=== PATIENT | male | born 1980 | race American Indian/Alaskan Native ===

== ENCOUNTER 2018-07-19 12:45 | Emergency (ER) | payer SELFPAY ==
[2018-07-19] MEDS ORDERED: IBUPROFEN PO ONE (13:18)
[2018-07-19] MEDS ORDERED: CATAPRES PO ONE ×2 (13:18→13:25)
[2018-07-19] MEDS ORDERED: CATAPRES ONE (13:29)
--- NOTE | 2018-07-19 14:36 | Cat Scan Report ---
CT HEAD WITHOUT CONTRAST INDICATION: Headache. COMPARISON: None similar. FINDINGS: Noncontrast head CT demonstrates normal, symmetric ventricles and sulci without acute or recent infarct, hemorrhage, mass effect or midline shift. No abnormal extra-axial fluid collections. Posterior fossa structures and basilar cisterns appear within normal limits. Symmetric eye globes. Right mid ethmoid air cell opacification. Clear remainder imaged paranasal sinuses and mastoid air cells. Intact calvarium. Normal overlying scalp soft tissues. Few radiopaque dental material incidentally noted. CONCLUSION: No acute intracranial CT abnormality, as described. Thank you for the opportunity to participate in this patient's care.
--- NOTE | 2018-07-19 14:36 | Emergency Department Report ---
ED Headache HPI - General Chief Complaint: High BP Stated Complaint: HBP Time Seen by Provider: 07/19/18 13:12 - History of Present Illness Initial Comments: This is a 38-year-old male nontoxic, well nourished in appearance, no acute signs of distress presents to the ED with c/o of acute headache. Patient describes headache as diffuse with level of 8 out of 10. Patient denies thunderclap headache. Patient denies any radiation of pain. Patient denies any head trauma. Patient denies any visual changes. Patient denies worse headache. Patient denies any numbness, tingling, fever, chills, nausea, vomiting, chest pain, shortness of breath, stiff neck. Patient denies any radiation of pain. Patient denies any allergies. Patient stated PMH includes HTN and was taken off lisinopril due to cough but has never followed for different medication. Timing/Duration: episodic Quality: mild, achy Head Injury Location: other (diffuse) Recent Head Trauma: no recent headache/trauma Associated Symptoms: denies symptoms. denies: confusion, fatigue, facial pain, fever/chills, flushing, loss of consciousness, nausea/vomiting, nasal congestion, nasal drainage, numbness in legs/feet, rash, seizures, sinus infection, stiff neck, vision changes, weakness Allergies/Adverse Reactions: Allergies No Known Allergies Allergy (Verified 10/15/13 14:39) Home Medications: Ambulatory Orders Lisinopril/Hydrochlorothiazide [Zestoretic 10-12.5 mg] 1 tab PO QDAY #30 tablet 10/11/14 traMADol [Ultram 50 MG tab] 50 mg PO Q6HR PRN #20 tablet 10/11/14 Amoxicillin [Trimox CAP] 500 mg PO Q8H #30 capsule 04/23/18 Ibuprofen [Motrin] 800 mg PO Q8HR #30 tablet 04/23/18 Valsartan [Diovan] 160 mg PO QDAY #40 tablet 04/23/18 Ibuprofen [Motrin] 600 mg PO Q8H PRN #30 tablet 07/19/18 amLODIPine [Norvasc] 10 mg PO DAILY #30 tab 07/19/18 ED Review of Systems ROS: Stated complaint: HBP Other details as noted in HPI Constitutional: denies: chills, fever Eyes: denies: eye pain, eye discharge, vision change ENT: denies: ear pain, throat pain Respiratory: denies: cough, shortness of breath, wheezing Cardiovascular: denies: chest pain, palpitations Endocrine: no symptoms reported Gastrointestinal: denies: abdominal pain, nausea, diarrhea Genitourinary: denies: urgency, dysuria Musculoskeletal: denies: back pain, joint swelling, arthralgia Skin: denies: rash, lesions Neurological: headache. denies: weakness, paresthesias Psychiatric: denies: anxiety, depression Hematological/Lymphatic: denies: easy bleeding, easy bruising ED Past Medical Hx - Past Medical History Previous Medical History?: Yes Hx Hypertension: Yes (not on medication) Hx Psychiatric Treatment: Yes (anxiety) Additional medical history: Cholelithiasis, hx of anxiety - Surgical History Past Surgical History?: Yes Additional Surgical History: CORNEAL LACERATION Lt eye 1996 - Social History Smoking Status: Never Smoker Substance Use Type: Alcohol - Medications Home Medications: Home Medications Medication Instructions Recorded Confirmed Last Taken Type Lisinopril/Hydrochlorothiazide 1 tab PO QDAY #30 tablet 10/11/14 Unknown Rx [Zestoretic 10-12.5 mg] traMADol [Ultram 50 MG tab] 50 mg PO Q6HR PRN #20 tablet 10/11/14 Unknown Rx Amoxicillin [Trimox CAP] 500 mg PO Q8H #30 capsule 04/23/18 Unknown Rx Ibuprofen [Motrin] 800 mg PO Q8HR #30 tablet 04/23/18 Unknown Rx Valsartan [Diovan] 160 mg PO QDAY #40 tablet 04/23/18 Unknown Rx Ibuprofen [Motrin] 600 mg PO Q8H PRN #30 tablet 07/19/18 Unknown Rx amLODIPine [Norvasc] 10 mg PO DAILY #30 tab 07/19/18 Unknown Rx ED Physical Exam - General Limitations: No Limitations General appearance: alert, in no apparent distress - Head Head exam: Present: atraumatic, normocephalic - Eye Eye exam: Present: normal appearance, PERRL, EOMI - Neck Neck exam: Present: normal inspection, full ROM - Extremities Exam Extremities exam: Present: normal inspection, full ROM, normal capillary refill - Back Exam Back exam: Present: normal inspection, full ROM. Absent: tenderness, CVA tenderness (R), CVA tenderness (L), muscle spasm, paraspinal tenderness, vertebral tenderness, rash noted - Neurological Exam Neurological exam: Present: alert, oriented X3, normal gait - Expanded Neurological Exam Expanded Patient oriented to: Present: person, place, time Cranial nerves: EOM's Intact: Normal, Facial Sensation: Normal Cerebellar function: Finger to Nose: Normal Upper motor neuron: Pronator Drift: Normal, Sensory Extinction: Normal Sensory exam: Upper Extremity Light Touch: Normal, Upper Extremity Pin Prick: Normal, Upper Extremity Temperature: Normal, Lower Extremity Light Touch: Normal, Lower Extremity Pin Prick: Normal, Lower Extremity Temperature: Normal Motor strength exam: RUE: 5, LUE: 5, RLE: 5, LLE: 5 Best Eye Response ([place]): (4) open spontaneously Best Motor Response ([place]): (6) obeys commands Best Verbal Response ([place]): (5) oriented [place] Total: 15 - Psychiatric Psychiatric exam: Present: normal affect, normal mood - Skin Skin exam: Present: warm, dry, intact, normal color. Absent: rash ED Course Vital Signs 07/19/18 07/19/18 07/19/18 12:57 13:27 13:28 Temperature 97.8 F Pulse Rate 98 H 84 84 Respiratory 18 Rate Blood Pressure 175/106 154/101 Blood Pressure 154/101 [Right] O2 Sat by Pulse 98 Oximetry - Reevaluation(s) Reevaluation #1: 07/19/18 14:38 Patient is speaking in full sentences with no signs of distress noted. ED Medical Decision Making - Medical Decision Making This is a 38-year-old male that presents with headache and hypertension. Patient is stable and was examined by me. Patient is neurologically stable. There is no stiff neck or neck pain. Vital signs are stable. Patient is afebrile. CT scan of head/brain obtained and dictated by the radiologist. Patient received Motrin which the patient stated that headache has subsided and resolved. Blood pressure has decreased with Catapres. I will discharge patient on Norvasc. Was instructed to keep a daily diary of blood pressure into presented to primary care doctor. Patient was referred to Follow-up with a primary care/neurologist doctor in 3-5 days or if symptoms worsen and continue return to emergency room as soon as possible. At time of discharge, the patient does not seem toxic or ill in appearance. No acute signs of distress noted. Patient agrees to discharge treatment plan of care. No further questions noted by the patient. Critical care attestation.: If time is entered above; I have spent that time in minutes in the direct care of this critically ill patient, excluding procedure time. ED Disposition Clinical Impression: Headache Qualifiers: Headache type: tension-type Headache chronicity pattern: acute headache Intractability: not intractable Qualified Code(s): G44.209 - Tension-type headache, unspecified, not intractable Hypertension Qualifiers: Hypertension type: unspecified Qualified Code(s): I10 - Essential (primary) hypertension Disposition: TO HOME OR SELFCARE Is pt being admited?: No Does the pt Need Aspirin: No Condition: Stable Instructions: Hypertension (ED), Acute Headache (ED) Additional Instructions: Follow-up with a primary care doctor in 3-5 days or if symptoms worsen and continue return to emergency room as soon as possible. Keep a daily diary of your blood pressure and present it to your primary care doctor. Prescriptions: amLODIPine [Norvasc] 10 mg PO DAILY #30 tab Ibuprofen [Motrin] 600 mg PO Q8H PRN #30 tablet PRN Reason: Pain Referrals: EDGARDO POLANCO DO [Primary Care Provider] - 3-5 Days PRIMARY CAREMD [Referring] - 3-5 Days AGUSTIN NOBLES MD [Staff Physician] - 3-5 Days [facility] [Outside] - 3-5 Days [facility] [Outside] - 3-5 Days Forms: Work/School Release Form(ED)
[2018-07-19 14:49] VITALS: BP 146/91
== END 2018-07-19 15:09 | disposition home or self-care (01) ==
LOC: ED 12:45
DX: G44.209 Tension-type headache, unspecified, not intractable (principal); I10 Essential (primary) hypertension; F41.9 Anxiety disorder, unspecified
CPT/HCPCS: 70450

== ENCOUNTER 2019-02-26 15:21 | Emergency (ER) | payer OTHER ==
[2019-02-26] MEDS ORDERED: ASPIRIN PO ONE (15:27)
--- NOTE | 2019-02-26 15:29 | Event Note ---
ED Screening Note Date of service: 02/26/19 Time: 15:27 ED Screening Note: This is a 39 y.o. M. that presents to the ER with chest pain that started while eating lunch at work. PMH of HTN and anxiety. This initial assessment/diagnostic orders/clinical plan/treatment(s) is/are subject to change based on patients health status, clinical progression and re- assessment by fellow clinical providers in the ED. Further treatment and workup at subsequent clinical providers discretion. Patient/guardian urged not to elope from the ED as their condition may be serious if not clinically assessed and managed. Initial orders include: Labs, EKG, & CXR
--- NOTE | 2019-02-26 16:01 | Emergency Department Report ---
ED Chest Pain HPI - General Chief Complaint: Chest Pain Stated Complaint: CHEST PAIN Time Seen by Provider: 02/26/19 15:26 Source: patient Mode of arrival: Ambulatory Limitations: No Limitations - History of Present Illness Initial Comments: Patient is 39 years old male with history of hypertension and anxiety. Patient presented to the ER complaining of left-sided chest pain that started all of a sudden while he was working. Patient describes his pain as sharp, intermittent with no radiation. Patient denied any fever or chills. MD Complaint: chest pain Onset: during rest Pain Location: left chest Severity: moderate Quality: sharp Consistency: intermittent - Related Data Previous Rx's Medication Instructions Recorded Last Taken Type Lisinopril/Hydrochlorothiazide 1 tab PO QDAY #30 tablet 10/11/14 Unknown Rx [Zestoretic 10-12.5 mg] traMADol [Ultram 50 MG tab] 50 mg PO Q6HR PRN #20 tablet 10/11/14 Unknown Rx Amoxicillin [Trimox CAP] 500 mg PO Q8H #30 capsule 04/23/18 Unknown Rx Ibuprofen [Motrin] 800 mg PO Q8HR #30 tablet 04/23/18 Unknown Rx Valsartan [Diovan] 160 mg PO QDAY #40 tablet 04/23/18 Unknown Rx Ibuprofen [Motrin] 600 mg PO Q8H PRN #30 tablet 07/19/18 Unknown Rx amLODIPine [Norvasc] 10 mg PO DAILY #30 tab 07/19/18 Unknown Rx Allergies Allergy/AdvReac Type Severity Reaction Status Date / Time No Known Allergies Allergy Verified 10/15/13 14:39 Heart Score - HEART Score History: Slightly suspicious EKG: Normal Age: < 45 Risk factors: 1-2 risk factors Troponin: < normal limit HEART Score: 1 - Critical Actions Critical Actions: 0-3 pts:0.9-1.7%risk of adverse cardiac event.Candidate for discharge ED Review of Systems ROS: Stated complaint: CHEST PAIN Other details as noted in HPI Comment: All other systems reviewed and negative Constitutional: denies: chills, fever Respiratory: denies: cough, orthopnea, shortness of breath, SOB with exertion, SOB at rest, wheezing Cardiovascular: chest pain. denies: palpitations, dyspnea on exertion, orthopnea Gastrointestinal: denies: abdominal pain, nausea, vomiting, diarrhea, constipation, hematemesis, melena, hematochezia Musculoskeletal: denies: back pain Neurological: denies: headache, weakness ED Past Medical Hx - Past Medical History Previous Medical History?: Yes Hx Hypertension: Yes (not on medication) Hx Psychiatric Treatment: Yes (anxiety) Additional medical history: Cholelithiasis, hx of anxiety - Surgical History Past Surgical History?: Yes Additional Surgical History: CORNEAL LACERATION Lt eye 1996 - Social History Smoking Status: Never Smoker Substance Use Type: Alcohol - Medications Home Medications: Home Medications Medication Instructions Recorded Confirmed Last Taken Type Lisinopril/Hydrochlorothiazide 1 tab PO QDAY #30 tablet 10/11/14 Unknown Rx [Zestoretic 10-12.5 mg] traMADol [Ultram 50 MG tab] 50 mg PO Q6HR PRN #20 tablet 10/11/14 Unknown Rx Amoxicillin [Trimox CAP] 500 mg PO Q8H #30 capsule 04/23/18 Unknown Rx Ibuprofen [Motrin] 800 mg PO Q8HR #30 tablet 04/23/18 Unknown Rx Valsartan [Diovan] 160 mg PO QDAY #40 tablet 04/23/18 Unknown Rx Ibuprofen [Motrin] 600 mg PO Q8H PRN #30 tablet 07/19/18 Unknown Rx amLODIPine [Norvasc] 10 mg PO DAILY #30 tab 07/19/18 Unknown Rx ED Physical Exam - General Limitations: No Limitations General appearance: alert, in no apparent distress - Head Head exam: Present: atraumatic, normocephalic, normal inspection - Eye Eye exam: Present: normal appearance, PERRL - ENT ENT exam: Present: normal exam, normal orophraynx, mucous membranes moist - Neck Neck exam: Present: normal inspection, full ROM. Absent: tenderness, meningismus, lymphadenopathy, thyromegaly - Respiratory Respiratory exam: Present: normal lung sounds bilaterally - Cardiovascular Cardiovascular Exam: Present: regular rate, normal rhythm, normal heart sounds - GI/Abdominal GI/Abdominal exam: Present: soft, normal bowel sounds. Absent: distended, tenderness, guarding, rebound, rigid, organomegaly, mass, bruit, pulsatile mass, hernia - Extremities Exam Extremities exam: Present: normal inspection, full ROM, normal capillary refill. Absent: tenderness, pedal edema, calf tenderness - Back Exam Back exam: Present: normal inspection, full ROM. Absent: CVA tenderness (R), CVA tenderness (L), muscle spasm, paraspinal tenderness, vertebral tenderness - Neurological Exam Neurological exam: Present: alert, oriented X3, CN II-XII intact, normal gait - Psychiatric Psychiatric exam: Present: normal mood - Skin Skin exam: Present: warm, intact, normal color ED Course Vital Signs 02/26/19 02/26/19 02/26/19 15:26 16:13 18:00 Temperature 98.3 F 98 F 98.5 F Pulse Rate 102 H 88 78 Respiratory 16 16 16 Rate Blood Pressure 171/84 Blood Pressure 160/90 140/93 [Right] O2 Sat by Pulse 98 98 98 Oximetry WILLIAM score - William Score Age > 65: (0) No Aspirin use within the Past 7 Days: (0) No 3 or more CAD Risk Factors: (0) No 2 or more Angina events in past 24 hrs: (0) No Known CAD with more than 50% Stenosis: (0) No Elevated Cardiac Markers: (0) No ST Deviation Greater than 0.5mm: (0) No WILLIAM Score: 0 ED Medical Decision Making - Lab Data Result diagrams: 02/26/19 15:46 02/26/19 15:41 - EKG Data -: EKG Interpreted by [place] EKG shows normal: sinus rhythm Rate: normal - EKG Data Interpretation: no acute changes - Radiology Data Radiology results: report reviewed - Medical Decision Making Patient is 39 years old male with history of hypertension and anxiety. Patient presented to the ER complaining of left-sided chest pain that started all of a sudden while he was working. Patient describes his pain as sharp, intermittent with no radiation. Patient denied any fever or chills. Patient also added that he ate a chili dogs today and he started having burning sensation after that. Patient stated that he has history of GERD also. Patient EKG is negative for acute finding. Chest x-ray is unremarkable. Patient's symptoms completely resolved. 2 sets of troponin is negative. Patient advised to follow-up with his primary care physician in the next 2-3 days and to return to the ER if symptoms are not improved. Critical care attestation.: If time is entered above; I have spent that time in minutes in the direct care of this critically ill patient, excluding procedure time. ED Disposition Clinical Impression: Chest pain Disposition: DC-01 TO HOME OR SELFCARE Is pt being admited?: No Condition: Stable Instructions: Chest Pain (ED) Referrals: PRIMARY CARE,MD [Primary Care Provider] - 3-5 Days
[2019-02-26 16:14] LABS: Basophils % (Auto) 0.4 % (0.0-1.8); Eosinophils % (Auto) 0.4 % (0.0-4.3); Hematocrit 43.7 % (35.5-45.6); Hemoglobin 14.7 gm/dl (11.8-15.2); Lymphocytes # (Auto) 1.9 K/mm3 (1.2-5.4); Lymphocytes % (Auto) 19.6 % (13.4-35.0); Mean Corpuscular HGB Conc 34 % (32-34); Mean Corpuscular Volume 98 fl (84-94); Monocytes # (Auto) 0.6 K/mm3 (0.0-0.8); Monocytes % (Auto) 6.5 % (0.0-7.3); Platelet Count 330 K/mm3 (140-440); Red Blood Count 4.47 M/mm3 (3.65-5.03); Red Cell Distribution Width 12.5 % (13.2-15.2)
--- NOTE | 2019-02-26 16:27 | XRay Report ---
CHEST 1 VIEW INDICATION: Chest Pain. COMPARISON: None. FINDINGS: Support devices: None. Heart: Within normal limits. Pulmonary vasculature: Normal. Lungs/Pleura: No acute air space or interstitial disease. Additional findings: None. IMPRESSION: 1. No acute findings. Signer Name: Aldo Collins MD Signed: 02/26/2019 4:22 PM Workstation Name: [id number]
[2019-02-26 16:35] LABS: BUN/Creatinine Ratio 11; Blood Urea Nitrogen 10 mg/dL (9-20); Calcium 9.3 mg/dL (8.4-10.2); Hemolysis Index 20
[2019-02-26 18:14] VITALS: BP 140/93
== END 2019-02-26 19:51 | disposition home or self-care (01) ==
LOC: ED 15:21
DX: R07.89 Other chest pain (principal); I10 Essential (primary) hypertension; F41.9 Anxiety disorder, unspecified; Z98.890 Other specified postprocedural states
CPT/HCPCS: 36415; 71045; 80048; 84484; 85025; 93005; 93010

== ENCOUNTER 2019-08-06 06:18 | Emergency (ER) | payer SELFPAY ==
[2019-08-06 06:24] VITALS: BP 147/103
--- NOTE | 2019-08-06 08:23 | Emergency Department Report ---
ED ENT HPI - General Chief complaint: Dental/Oral Stated complaint: TOOTHACHE Time Seen by Provider: 08/06/19 08:04 Source: patient Mode of arrival: Ambulatory Limitations: No Limitations - History of Present Illness MD complaint: tooth pain -: month(s) (Chronic ) Location: other (Teeth in right upper and left upper jaw) Severity: moderate Consistency: intermittent Improves with: none Worsens with: eating Context- Dental: poor dental care Associated Symptoms: gum swelling, toothache - Related Data Previous Rx's Medication Instructions Recorded Last Taken Type Lisinopril/Hydrochlorothiazide 1 tab PO QDAY #30 tablet 10/11/14 Unknown Rx [Zestoretic 10-12.5 mg] traMADoL [Ultram 50 MG tab] 50 mg PO Q6HR PRN #20 tablet 10/11/14 Unknown Rx Valsartan [Diovan] 160 mg PO QDAY #40 tablet 04/23/18 Unknown Rx Ibuprofen [Motrin] 600 mg PO Q8H PRN #30 tablet 07/19/18 Unknown Rx amLODIPine [Norvasc] 10 mg PO DAILY #30 tab 07/19/18 Unknown Rx Esomeprazole Magnesium [NexIUM] 40 mg PO QDAY #30 capsule. 02/26/19 Unknown Rx Amoxicillin [Trimox CAP] 500 mg PO Q8H #30 capsule 08/06/19 Unknown Rx Ibuprofen [Motrin 800 MG tab] 800 mg PO Q8HR #30 tablet 08/06/19 Unknown Rx Allergies Allergy/AdvReac Type Severity Reaction Status Date / Time No Known Allergies Allergy Verified 10/15/13 14:39 ED Dental HPI - General Chief complaint: Dental/Oral Stated complaint: TOOTHACHE Time Seen by Provider: 08/06/19 08:04 Source: patient Mode of arrival: Ambulatory Limitations: No Limitations - Related Data Previous Rx's Medication Instructions Recorded Last Taken Type Lisinopril/Hydrochlorothiazide 1 tab PO QDAY #30 tablet 10/11/14 Unknown Rx [Zestoretic 10-12.5 mg] traMADoL [Ultram 50 MG tab] 50 mg PO Q6HR PRN #20 tablet 10/11/14 Unknown Rx Valsartan [Diovan] 160 mg PO QDAY #40 tablet 04/23/18 Unknown Rx Ibuprofen [Motrin] 600 mg PO Q8H PRN #30 tablet 07/19/18 Unknown Rx amLODIPine [Norvasc] 10 mg PO DAILY #30 tab 07/19/18 Unknown Rx Esomeprazole Magnesium [NexIUM] 40 mg PO QDAY #30 capsule. 02/26/19 Unknown Rx Amoxicillin [Trimox CAP] 500 mg PO Q8H #30 capsule 08/06/19 Unknown Rx Ibuprofen [Motrin 800 MG tab] 800 mg PO Q8HR #30 tablet 08/06/19 Unknown Rx Allergies Allergy/AdvReac Type Severity Reaction Status Date / Time No Known Allergies Allergy Verified 10/15/13 14:39 ED Review of Systems ROS: Stated complaint: TOOTHACHE Other details as noted in HPI Constitutional: denies: chills, fever ENT: dental pain. denies: ear pain, throat pain, hearing loss, congestion Respiratory: denies: orthopnea, shortness of breath, SOB with exertion, SOB at rest Cardiovascular: denies: chest pain Gastrointestinal: denies: nausea, vomiting, diarrhea Skin: denies: rash Psychiatric: denies: anxiety, depression ED Past Medical Hx - Past Medical History Previous Medical History?: Yes Hx Hypertension: Yes (not on medication) Hx Psychiatric Treatment: Yes (anxiety) Additional medical history: Cholelithiasis, hx of anxiety - Surgical History Past Surgical History?: Yes Additional Surgical History: CORNEAL LACERATION Lt eye 1996 - Social History Smoking Status: Never Smoker Substance Use Type: None - Medications Home Medications: Home Medications Medication Instructions Recorded Confirmed Last Taken Type Lisinopril/Hydrochlorothiazide 1 tab PO QDAY #30 tablet 10/11/14 Unknown Rx [Zestoretic 10-12.5 mg] traMADoL [Ultram 50 MG tab] 50 mg PO Q6HR PRN #20 tablet 10/11/14 Unknown Rx Valsartan [Diovan] 160 mg PO QDAY #40 tablet 04/23/18 Unknown Rx Ibuprofen [Motrin] 600 mg PO Q8H PRN #30 tablet 07/19/18 Unknown Rx amLODIPine [Norvasc] 10 mg PO DAILY #30 tab 07/19/18 Unknown Rx Esomeprazole Magnesium [NexIUM] 40 mg PO QDAY #30 capsule. 02/26/19 Unknown Rx Amoxicillin [Trimox CAP] 500 mg PO Q8H #30 capsule 08/06/19 Unknown Rx Ibuprofen [Motrin 800 MG tab] 800 mg PO Q8HR #30 tablet 08/06/19 Unknown Rx ED Physical Exam - General Limitations: No Limitations - Head Head exam: Present: atraumatic, normocephalic - Eye Eye exam: Present: normal appearance - ENT ENT exam: Present: normal exam, mucous membranes dry, mucous membranes moist, other (extensive dental decay noted right upper posterior molars with gum swelling and ttp but no abscess. There is decay molar noted to most posterior aspect of left upper jaw. TTP but no obvious abscess) - Cardiovascular Cardiovascular Exam: Present: regular rate ED Course Vital Signs 08/06/19 06:22 Temperature 98.6 F Pulse Rate 77 Respiratory 18 Rate Blood Pressure 147/103 O2 Sat by Pulse 97 Oximetry Critical care attestation.: If time is entered above; I have spent that time in minutes in the direct care of this critically ill patient, excluding procedure time. ED Disposition Clinical Impression: Dental caries Disposition: DC-01 TO HOME OR SELFCARE Is pt being admited?: No Does the pt Need Aspirin: No Condition: Stable Instructions: Dental Caries (ED) Prescriptions: Ibuprofen [Motrin 800 MG tab] 800 mg PO Q8HR #30 tablet Amoxicillin [Trimox CAP] 500 mg PO Q8H #30 capsule Referrals: PRIMARY CARE, [Primary Care Provider] - 3-5 Days Time of Disposition: 08:23
== END 2019-08-06 08:36 | disposition home or self-care (01) ==
LOC: ED 06:18
DX: K02.9 Dental caries, unspecified (principal); I10 Essential (primary) hypertension; F41.9 Anxiety disorder, unspecified; Z79.1 Long term (current) use of non-steroidal anti-inflammatories (NSAID); Z79.899 Other long term (current) drug therapy; Z98.890 Other specified postprocedural states
CPT/HCPCS: 99282

== ENCOUNTER 2021-04-04 08:26 | Emergency (ER) | payer OTHER ==
[2021-04-04 08:56] VITALS: BP 164/87
--- NOTE | 2021-04-04 09:00 | Emergency Department Report ---
ED ENT HPI - General Chief complaint: Dental/Oral Stated complaint: MOTH INFECTION/BROKEN TEETH ISSUE Time Seen by Provider: 04/04/21 08:45 Source: patient Mode of arrival: Ambulatory Limitations: No Limitations - History of Present Illness Initial comments: This is a 41-year-old male nontoxic, well nourished in appearance, no acute signs of distress presents to the ED with c/o of upper toothache several days. Patient stated that he feels like it is draining due to a foul taste in mouth after swallowing saliva. Patient denies following up with a dentist. Patient describes toothache as aching level of 4 out of 10. Patient denies any facial swelling. Patient denies any numbness, tingling, fever, chills, headache, stiff neck, abdominal pain, chest pain, shortness of breath. Patient denies any drug allergies. MD complaint: tooth pain -: days(s) Location: tooth # 1 - Pain here Severity: mild Severity scale (0 -10): 4 Quality: aching Consistency: constant Improves with: none Worsens with: none Context- Dental: history of dental caries, poor dental care Associated Symptoms: gum swelling, toothache. denies: fever, cough, pain with swallowing, sore throat, tinnitus, hearing loss, discharge from ear, rhinorrhea - Related Data Previous Rx's Medication Instructions Recorded Last Taken Type Lisinopril/Hydrochlorothiazide 1 tab PO QDAY #30 tablet 10/11/14 Unknown Rx [Zestoretic 10-12.5 mg] traMADoL [Ultram 50 MG tab] 50 mg PO Q6HR PRN #20 tablet 10/11/14 Unknown Rx Valsartan [Diovan] 160 mg PO QDAY #40 tablet 04/23/18 Unknown Rx Ibuprofen [Motrin] 600 mg PO Q8H PRN #30 tablet 07/19/18 Unknown Rx amLODIPine [Norvasc] 10 mg PO DAILY #30 tab 07/19/18 Unknown Rx Esomeprazole Magnesium [NexIUM] 40 mg PO QDAY #30 02/26/19 Unknown Rx Amoxicillin [Trimox CAP] 500 mg PO Q8H #30 capsule 08/06/19 Unknown Rx Ibuprofen [Motrin 800 MG tab] 800 mg PO Q8HR #30 tablet 08/06/19 Unknown Rx Amoxicillin/K Clav Tab [Augmentin 1 tab PO Q12HR #20 tab 04/04/21 Unknown Rx 875 mg] Chlorhexidine Mouthwash [Peridex] 15 ml MM BID #1 bottle 04/04/21 Unknown Rx Naproxen 500 mg PO Q12H PRN #12 tablet 04/04/21 Unknown Rx Allergies Allergy/AdvReac Type Severity Reaction Status Date / Time No Known Allergies Allergy Verified 04/04/21 08:28 ED Dental HPI - General Chief complaint: Dental/Oral Stated complaint: MOTH INFECTION/BROKEN TEETH ISSUE Time Seen by Provider: 04/04/21 08:45 Source: patient Mode of arrival: Ambulatory Limitations: No Limitations - Related Data Previous Rx's Medication Instructions Recorded Last Taken Type Lisinopril/Hydrochlorothiazide 1 tab PO QDAY #30 tablet 10/11/14 Unknown Rx [Zestoretic 10-12.5 mg] traMADoL [Ultram 50 MG tab] 50 mg PO Q6HR PRN #20 tablet 10/11/14 Unknown Rx Valsartan [Diovan] 160 mg PO QDAY #40 tablet 04/23/18 Unknown Rx Ibuprofen [Motrin] 600 mg PO Q8H PRN #30 tablet 07/19/18 Unknown Rx amLODIPine [Norvasc] 10 mg PO DAILY #30 tab 07/19/18 Unknown Rx Esomeprazole Magnesium [NexIUM] 40 mg PO QDAY #30 capsule. 02/26/19 Unknown Rx Amoxicillin [Trimox CAP] 500 mg PO Q8H #30 capsule 08/06/19 Unknown Rx Ibuprofen [Motrin 800 MG tab] 800 mg PO Q8HR #30 tablet 08/06/19 Unknown Rx Amoxicillin/K Clav Tab [Augmentin 1 tab PO Q12HR #20 tab 04/04/21 Unknown Rx 875 mg] Chlorhexidine Mouthwash [Peridex] 15 ml MM BID #1 bottle 04/04/21 Unknown Rx Naproxen 500 mg PO Q12H PRN #12 tablet 04/04/21 Unknown Rx Allergies Allergy/AdvReac Type Severity Reaction Status Date / Time No Known Allergies Allergy Verified 04/04/21 08:28 ED Review of Systems ROS: Stated complaint: MOTH INFECTION/BROKEN TEETH ISSUE Other details as noted in HPI Comment: All other systems reviewed and negative Constitutional: denies: chills, fever Eyes: denies: eye pain, eye discharge, vision change ENT: dental pain. denies: ear pain, throat pain, hearing loss, epistaxis, congestion Respiratory: denies: cough, shortness of breath, wheezing Cardiovascular: denies: chest pain, palpitations Endocrine: no symptoms reported Gastrointestinal: denies: abdominal pain, nausea, diarrhea Genitourinary: denies: urgency, dysuria Musculoskeletal: denies: back pain, joint swelling, arthralgia Skin: denies: rash, lesions Neurological: denies: headache, weakness, paresthesias Psychiatric: denies: anxiety, depression Hematological/Lymphatic: denies: easy bleeding, easy bruising ED Past Medical Hx - Past Medical History Hx Hypertension: Yes (not on medication) Hx Psychiatric Treatment: Yes (anxiety) Additional medical history: Cholelithiasis, hx of anxiety - Surgical History Additional Surgical History: CORNEAL LACERATION Lt eye 1996 - Social History Smoking Status: Never Smoker Substance Use Type: None - Medications Home Medications: Home Medications Medication Instructions Recorded Confirmed Last Taken Type Lisinopril/Hydrochlorothiazide 1 tab PO QDAY #30 tablet 10/11/14 Unknown Rx [Zestoretic 10-12.5 mg] traMADoL [Ultram 50 MG tab] 50 mg PO Q6HR PRN #20 tablet 10/11/14 Unknown Rx Valsartan [Diovan] 160 mg PO QDAY #40 tablet 04/23/18 Unknown Rx Ibuprofen [Motrin] 600 mg PO Q8H PRN #30 tablet 07/19/18 Unknown Rx amLODIPine [Norvasc] 10 mg PO DAILY #30 tab 07/19/18 Unknown Rx Esomeprazole Magnesium [NexIUM] 40 mg PO QDAY #30 capsule. 02/26/19 Unknown Rx Amoxicillin [Trimox CAP] 500 mg PO Q8H #30 capsule 08/06/19 Unknown Rx Ibuprofen [Motrin 800 MG tab] 800 mg PO Q8HR #30 tablet 08/06/19 Unknown Rx Amoxicillin/K Clav Tab [Augmentin 1 tab PO Q12HR #20 tab 04/04/21 Unknown Rx 875 mg] Chlorhexidine Mouthwash [Peridex] 15 ml MM BID #1 bottle 04/04/21 Unknown Rx Naproxen 500 mg PO Q12H PRN #12 tablet 04/04/21 Unknown Rx ED Physical Exam - General Limitations: No Limitations General appearance: alert, in no apparent distress - Head Head exam: Present: atraumatic, normocephalic - Eye Eye exam: Present: normal appearance - Expanded ENT Exam Expanded Mouth exam: Present: normal external inspection, tongue normal. Absent: drooling, trismus, muffled voice Teeth exam: Present: dental caries, fractured tooth #, dental tenderness #, gingival enlargement, other (No facial swelling. No abscess.) Throat exam: Positive: normal inspection, other (Uvula midline). Negative: tonsillar erythema, tonsillomegaly, tonsillar exudate, R peritonsillar mass, L peritonsillar mass - Neck Neck exam: Present: normal inspection, full ROM. Absent: lymphadenopathy - Respiratory Respiratory exam: Absent: respiratory distress - Cardiovascular Cardiovascular Exam: Present: regular rate - Extremities Exam Extremities exam: Present: full ROM - Back Exam Back exam: Present: full ROM - Neurological Exam Neurological exam: Present: alert, oriented X3, normal gait - Psychiatric Psychiatric exam: Present: normal affect, normal mood - Skin Skin exam: Present: warm, dry, intact, normal color. Absent: rash ED Course Vital Signs 04/04/21 08:30 Temperature 97.5 F L Pulse Rate 74 Respiratory 20 Rate Blood Pressure 164/87 O2 Sat by Pulse 100 Oximetry - Reevaluation(s) Reevaluation #1: 04/04/21 08:58 Patient is speaking in full sentences with no signs of distress noted. ED Medical Decision Making - Medical Decision Making This is a 39-year-old male that presents with gingivitis and dental caries. Patient is stable and was examined by me. Exam does not show any dental abscess. Patient was given referral to see a dentist in 3 to 5 days or if symptoms worsen to return to emergency room as was possible. At time of discharge, the patient does not seem toxic or ill in appearance. No acute signs of distress noted. Patient agrees to discharge treatment plan of care. No further questions noted by the patient. Critical care attestation.: If time is entered above; I have spent that time in minutes in the direct care of this critically ill patient, excluding procedure time. ED Disposition Clinical Impression: Dental caries, Gingivitis Disposition: HOME / SELF CARE / HOMELESS Is pt being admited?: No Does the pt Need Aspirin: No Condition: Stable Instructions: Preventive Dental Care, Adult Additional Instructions: Follow-up with a dentist doctor in 3-5 days or if symptoms worsen and continue return to emergency room as soon as possible. Prescriptions: Amoxicillin/K Clav Tab [Augmentin 875 mg] 1 tab PO Q12HR #20 tab Naproxen 500 mg PO Q12H PRN #12 tablet PRN Reason: Pain , Severe (7-10) Chlorhexidine Mouthwash [Peridex] 15 ml MM BID #1 bottle Referrals: PRIMARY CARE, [Referring] - 3-5 Days [facility] [Outside] - 3-5 Days [facility] [Outside] - 3-5 Days Time of Disposition: 09:00
== END 2021-04-04 09:54 | disposition home or self-care (01) ==
LOC: ED 08:26
DX: K02.9 Dental caries, unspecified (principal); K05.10 Chronic gingivitis, plaque induced; I10 Essential (primary) hypertension; K80.20 Calculus of gallbladder without cholecystitis without obstruction; Z98.890 Other specified postprocedural states
CPT/HCPCS: 99282